=== PATIENT | female | born 1950 | race Caucasian/White ===

== ENCOUNTER → 2022-07-11 | Outpatient (CLI) | payer MEDICARE, BC ==
[~2022-07-11] MED LIST: ACEASPCAF PO; Co Q-1010 MG; FERR325 PO; GLUC500 PO; Magnesium500 M1 PO; PROBIOTIC1 EAC1; Vitamin C1000 M1 PO; [UNRECOGNIZED DRUG - OTHER] PO
== END | disposition home or self-care (01) ==
LOC: LAB SHORT 12:13
DX: D04.39 Carcinoma in situ of skin of other parts of face (principal)
CPT/HCPCS: 88305